=== PATIENT | male | born 1980 | race Caucasian/White ===

== ENCOUNTER 2018-02-19 19:43 | Emergency (ER) | payer MEDICAID ==
--- NOTE | 2018-02-19 21:05 | RADIOLOGY REPORT (SQ) ---
3 VIEWS OF THE LEFT ELBOW AND WRIST HISTORY: Twist arm while moving glass. COMPARISON: None. FINDINGS: No acute fracture is seen. The joint spaces are preserved. No elbow joint effusion is seen. There is mild soft tissue swelling of the left forearm. IMPRESSION: No acute fracture is seen.
[2018-02-19] MEDS ORDERED: HYDROCODONE/ACETAMINOPHEN 5-325 MG (6 TAB/ER DISP) PO PRN (21:31)
[2018-02-19] MEDS ORDERED: KETOROLAC TROMETHAMINE 60 MG/2 ML SDV IM ONE (21:31)
--- NOTE | 2018-02-19 21:35 | ER Document Report ---
ED General - General Chief Complaint: Elbow Injury Stated Complaint: LEFT ELBOW PAIN,LEFT LEG PAIN Time Seen by Provider: 02/19/18 21:18 Notes: Patient is a 37-year-old male with a past medical history of rheumatoid arthritis who presents with left elbow pain. States that he was trying to carry a glass top for a table into a house, lost his balance, attempted to catch the glass table to prevent it from breaking and heard a pop in his left elbow. States that since that time he has had a severe, constant, throbbing pain to the left elbow worsened by any attempt at fully flexing the elbow. Denies any history of similar injury in the past. He has not tried anything for improvement of the pain. He does also note that he sustained a superficial laceration over the distal left lower extremity where the glass table struck his leg but is clear to state that the glass table did not break and there was no shattering of the glass. His tetanus is up-to-date. He has not seen his primary care physician regarding today's concerns. TRAVEL OUTSIDE OF THE [place] IN LAST 30 DAYS: No - Related Data Allergies/Adverse Reactions: Penicillins Allergy (Verified 02/19/18 20:10) Past Medical History - General Information source: Patient - Social History Smoking Status: Never Smoker Frequency of alcohol use: None Drug Abuse: None Lives with: Spouse/Significant other Family History: Reviewed & Not Pertinent Review of Systems - Review of Systems Notes: Constitutional: Negative for fever. Eyes: Negative for visual changes. ENT: Negative for facial injury Cardiovascular: Negative for chest injury. Respiratory: Negative for shortness of breath. Gastrointestinal: Negative for abdominal injury. Genitourinary: Negative for genital injury Musculoskeletal: Positive for left elbow injury Skin: Positive for laceration/abrasions. Neurological: Negative for head injury. Physical Exam - Vital signs Vitals: Temp Pulse Resp BP Pulse Ox 98.5 F 84 17 128/77 H 98 02/19/18 20:09 02/19/18 20:09 02/19/18 20:09 02/19/18 20:09 02/19/18 20:09 Interpretation: Normal Notes: PHYSICAL EXAMINATION: GENERAL: Well-appearing, well-nourished and in no acute distress. HEAD: Atraumatic, normocephalic. EYES: Pupils equal round and reactive to light, extraocular movements intact, sclera anicteric, conjunctiva are normal. ENT: nares patent, oropharynx clear without exudates. Moist mucous membranes. NECK: Normal range of motion, supple without lymphadenopathy LUNGS: Breath sounds clear to auscultation bilaterally and equal. No wheezes rales or rhonchi. HEART: Regular rate and rhythm without murmurs ABDOMEN: Soft, nontender, normoactive bowel sounds. No guarding, no rebound. No masses appreciated. EXTREMITIES: Full flexion extension of the elbow passively, although patient is unable to fully extend the elbow. There is pain on palpation of the posterior medial aspect of the elbow, posterior to the medial epicondyle. No notable swelling or bruising. Extremity examination otherwise globally unremarkable. NEUROLOGICAL: RMU motor and sensory distribution is intact bilaterally including against resistance PSYCH: Normal mood, normal affect. SKIN: Warm, Dry, normal turgor, superficial 4 cm laceration over the distal tibial plateau of the left lower extremity Course - Re-evaluation Re-evalutation: 02/19/18 21:32 Patient presents with a 4 cm laceration along the distal left tibial plateau closed with Dermabond after irrigation and cleaning without any difficulty. The patient also is complaining of severe left elbow pain over the medial posterior aspect of the olecranon. The patient is able to fully flex and extend at the level of the elbow. RMU motor and sensory distribution is intact including against resistance on motor testing. There is no obvious swelling, bruising or deformity to the area. X-ray is unremarkable. Suspect likely ligamentous strain, advised patient that only an MRI can definitively diagnose a ligamentous tear and that he would require follow-up with orthopedic surgery should his pain not improve over the next several days. At this time will discharge with return precautions and follow-up recommendations. Verbal discharge instructions given a the bedside and opportunity for questions given. Medication warnings reviewed. Patient is in agreement with this plan and has verbalized understanding of return precautions and the need for primary care follow-up in the next 24-72 hours. - Vital Signs Vital signs: Temp Pulse Resp BP Pulse Ox 98.3 F 63 16 121/69 100 02/19/18 22:32 02/19/18 22:32 02/19/18 22:32 02/19/18 22:32 02/19/18 22:32 - Diagnostic Test Radiology reviewed: Image reviewed, Reports reviewed Radiology results interpreted by me: 12/31/18 21:33 Left elbow x-ray: No acute fracture or dislocation Left wrist x-ray: No acute fracture or dislocation Procedures - Laceration/Wound Repair Left Leg Wound length (cm): 4 Wound's Depth, Shape: Superficial Laceration pre-procedure: Sterile PPE donned Wound explored: Clean Irrigated w/ Saline (mLs): 500 Wound Debrided: Minimal Wound Repaired With: Dermabond Post-procedure wound care: Sterile dressing applied Post-procedure NV exam normal: Yes Complications: No Discharge - Discharge Clinical Impression: Laceration of left lower leg Qualifiers: Encounter type: initial encounter Qualified Code(s): S81.812A - Laceration without foreign body, left lower leg, initial encounter Injury of left elbow Qualifiers: Encounter type: initial encounter Qualified Code(s): S59.902A - Unspecified injury of left elbow, initial encounter Condition: Good Disposition: HOME, SELF-CARE Additional Instructions: Your x-ray does not show any acute fracture today. You likely have a ligamentous strain. Per your request, you have been placed on prednisone. Use Tylenol 650 mg every 6 hours and up to 1 tablet of [place] every 6 hours as needed for pain not controlled by Tylenol. Continue to apply ice to the area is much your able. Please follow-up with your primary care physician if you do not have improving your symptoms in the next 1-2 weeks as an MRI may be required to evaluate for any possible ligamentous tear or injury. Please return immediately if you develop weakness, numbness, spreading redness from the area, or any other symptoms that are concerning to you. The wound has been closed with glue. Please do not pick at the at the wound. Do not cover it with any kind of antibiotic ointment as this can cause the glue to loosen. Return immediately if you develop spreading redness around the wound, pus from the wound, worsening pain, or a fever of >100.4. Keep the area clean and dry. Prescriptions: Prednisone [Deltasone 20 mg Tablet] 2 tab PO DAILY 5 Days tablet
[2018-02-19 22:34] VITALS: BP 121/69
== END 2018-02-19 22:45 | disposition home or self-care (01) ==
LOC: ER 19:43
DX: S81.812A Laceration without foreign body, left lower leg, initial encounter (principal); W25.XXXA Contact with sharp glass, initial encounter; S59.902A Unspecified injury of left elbow, initial encounter; X50.0XXA Overexertion from strenuous movement or load, initial encounter; Y93.89 Activity, other specified; Z88.0 Allergy status to penicillin
CPT/HCPCS: 99283; 96372; 73080; 73110; 12002; J1885

== ENCOUNTER 2018-08-02 22:45 | Emergency (ER) | payer MEDICAID ==
[2018-08-02 23:52] VITALS: BP 130/78
== END 2018-08-03 00:30 | disposition left against medical advice (07) ==
LOC: ER 22:45
DX: Z53.21 Procedure and treatment not carried out due to patient leaving prior to being seen by health care provider (principal); K08.89 Other specified disorders of teeth and supporting structures

== ENCOUNTER 2019-01-17 19:52 | Emergency (ER) | payer MEDICAID ==
[2019-01-17] MEDS ORDERED: OXYCODONE-ACETAMINOPHEN 5-325 MG TABLET PO ONE (20:09)
--- NOTE | 2019-01-17 21:48 | RADIOLOGY REPORT (SQ) ---
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 COMPARISON: None. TECHNIQUE: Grayscale, color Doppler, and spectral Doppler ultrasound images of the right groin were obtained. FINDINGS: Images through the right groin demonstrate no mass, fluid collection, or hernia. The visualized portions of the testes are unremarkable. IMPRESSION: No acute findings are seen. Consider CT scan if there is high clinical concern.
[2019-01-17] MEDS ORDERED: ONDANSETRON HCL INJ/PF 4 MG/2 ML SDV IV ONE (22:09)
[2019-01-17] MEDS ORDERED: HYDROMORPHONE HCL INJ/PF 2 MG/ML AMPULE IV ONE (22:09)
[2019-01-17 22:48] LABS: ABSOLUTE BASOPHILS # (AUTO) 0.1 10^3/uL (0.0-0.2); MONOCYTES % (AUTO) 12.2 % (3-13); TOTAL CELLS COUNTED % (AUTO) 100 %
[2019-01-17] MEDS ORDERED: NICOTINE 21 MG/24 HR PATCH.TD24 TD ONE (22:49)
[2019-01-17 22:53] LABS: ABSOLUTE EOSINOPHILS # (AUTO) 0.2 10^3/uL (0.0-0.6); ABSOLUTE LYMPHOCYTES (AUTO) 3.5 10^3/uL (0.5-4.7); ABSOLUTE MONOCYTES (AUTO) 1.3 10^3/uL (0.1-1.4); ABSOLUTE NEUT (AUTO) 5.7 10^3/uL (1.7-8.2); BASOPHILS % (AUTO) 0.9 % (0-2); EOSINOPHILS % (AUTO) 2.2 % (0-6); HEMATOCRIT 41.9 % (37.9-51.0); HEMOGLOBIN 14.6 g/dL (13.5-17.0); LYMPHOCYTES % (AUTO) 32.5 % (13-45); MEAN CORPUSCULAR HEMOGLOBIN 34.3 pg (27.0-33.4); MEAN CORPUSCULAR HGB CONC 34.8 g/dL (32.0-36.0); MEAN CORPUSCULAR VOLUME 99 fl (80-97); PLATELET COUNT 213 10^3/uL (150-450); RED BLOOD COUNT 4.25 10^6/uL (4.35-5.55); SEGMENTED NEUTROPHILS % (AUTO) 52.2 % (42-78); WHITE BLOOD COUNT 10.9 10^3/uL (4.0-10.5)
[2019-01-17 23:05] LABS: APPEARANCE,URINE CLEAR; BILIRUBIN,URINE NEGATIVE (NEGATIVE); COLOR,URINE YELLOW; GLUCOSE, URINE NEGATIVE (NEGATIVE); KETONES,URINE NEGATIVE (NEGATIVE); LEUKOCYTE ESTERASE,URINE NEGATIVE (NEGATIVE); NITRITE,URINE NEGATIVE (NEGATIVE); PROTEIN,URINE NEGATIVE (NEGATIVE); URINE SPECIFIC GRAVITY 1.025
[2019-01-17 23:08] LABS: ALBUMIN 3.7 g/dL (3.5-5.0); ALKALINE PHOSPHATASE 85 U/L (38-126); ANION GAP 8 (5-19); ASPARTATE AMINO TRANSFERASE 22 U/L (17-59); BILIRUBIN,DIRECT 0.1 mg/dL (0.0-0.4); BILIRUBIN,TOTAL 0.6 mg/dL (0.2-1.3); BLOOD UREA NITROGEN 21 mg/dL (7-20); CARBON DIOXIDE 24 mmol/L (22-30); CHLORIDE 109 mmol/L (98-107); GLUCOSE 89 mg/dL (75-110); POTASSIUM 4.2 mmol/L (3.6-5.0); TOTAL PROTEIN 6.5 g/dL (6.3-8.2)
--- NOTE | 2019-01-17 23:17 | ER Document Report ---
Entered by PATRICIA SEYMOUR SCRIBE 01/17/[id number] Acting as scribe for:CRISTHIAN SCHWARTZ IV, MD ED General - General Chief Complaint: Abdominal Pain Stated Complaint: LOWER GROIN PAIN/POSSIBLE HERNIA COMPLICATION Time Seen by Provider: 01/17/19 20:09 Mode of Arrival: Ambulatory Information source: Patient Notes: This 38 year old male patient presents to the emergency department today with complaints of right groin pain. Patient is s/p right inguinal hernia repair with mesh and he states that he thinks that he may have "messed it up" at work yesterday. 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 Patient states that yesterday he was tasked with "digging large holes in the sand to install 16 foot x 6" x 6" pressure treated beams" and when he was moving one of these his foot slipped on the wet sand. Patient states that it is "one of those things where you think you may have heard something, but definitely felt something". Patient states his pain is exacerbated with movement. Patient states his pain is relieved if he applies pressure on the area. Pertinent PMHx/PSHx: Right laparoscopic inguinal hernia repair with mesh in early 2018 at [facility] - additional PMHx/PSHx not pertinent to this visit as recorded. TRAVEL OUTSIDE OF THE [place] IN LAST 30 DAYS: No - Related Data Allergies/Adverse Reactions: Penicillins Allergy (Verified 01/17/19 20:01) Home Medications: Aleve PRN Past Medical History - General Information source: Patient - Social History Smoking Status: Current Every Day Smoker Cigarette use (# per day): Yes Frequency of alcohol use: None Drug Abuse: None Occupation: construction job cost estimator Lives with: Spouse/Significant other Family History: Reviewed & Not Pertinent Patient has suicidal ideation: No Patient has homicidal ideation: No Past Surgical History: Reports: Hx Herniorrhaphy - Right inguinal hernia repaired with mesh in early 2018 at [facility] Review of Systems - Review of Systems Constitutional: No symptoms reported EENT: No symptoms reported Cardiovascular: No symptoms reported Respiratory: No symptoms reported Gastrointestinal: See HPI, Other - pain in right groin Genitourinary: No symptoms reported Male Genitourinary: No symptoms reported Musculoskeletal: No symptoms reported Skin: No symptoms reported Hematologic/Lymphatic: No symptoms reported Neurological/Psychological: No symptoms reported -: Yes All other systems reviewed and negative Physical Exam - Vital signs Vitals: Temp Pulse BP Pulse Ox 97.9 F 83 141/88 H 100 01/17/19 19:55 01/17/19 19:55 01/17/19 19:55 01/17/19 19:55 - Notes Notes: Physical Exam: General: Alert, appears uncomfortable. HEENT: Normocephalic. Atraumatic. PERRL. Extraocular movements intact. Oropharynx clear. Neck: Supple. Non-tender. Respiratory: No respiratory distress. Clear and equal breath sounds bilaterally. Cardiovascular: Regular rate and rhythm. Abdominal: Normal Inspection. Non-tender. No distension. Normal Bowel Sounds. Male genitourinary: Mild swelling in the right inguinal region with associated tenderness on palpation. No appreciable bowel sounds upon auscultation of this area. Small well healed laparoscopy incisions. Back: No gross abnormalities. Extremities: Moves all four extremities. Upper extremities: Normal inspection. Normal ROM. Lower extremities: Normal inspection. No edema. Normal ROM. Neurological: Normal cognition. AAOx4. Normal speech. Psychological: Normal affect. Normal Mood. Skin: Warm. Dry. Normal color. Course - Re-evaluation Re-evalutation: 01/18/19 01:20 Patient states his pain is improved somewhat after IV Dilaudid. Patient states some pain is still present. Results of ED MSE discussed with patient and patient's significant other. All questions were answered prior to discharge. Emergency signs and symptoms, reasons to return to the ED discussed with patient and patient's significant other; they expressed understanding of reasons to return as explained to them. - Vital Signs Vital signs: Temp Pulse Resp BP Pulse Ox 97.8 F 71 125/69 95 01/18/19 00:38 01/18/19 00:38 01/18/19 00:38 01/18/19 00:38 01/18/19 01:21 All vital signs reviewed by this MD. - Laboratory Result Diagrams: 01/17/19 22:25 01/17/19 22:25 Laboratory results interpreted by me: 01/17/19 01/17/19 01/17/19 22:25 22:25 22:25 WBC 10.9 H RBC 4.25 L MCV 99 H MCH 34.3 H Chloride 109 H BUN 21 H Lipase 490.6 H Urine Urobilinogen 2.0 H All laboratory results reviewed by this MD. Of note patient's lipase is elevated, he is not complaining of any epigastric pain and his pancreas on CT is unremarkable. - Diagnostic Test Radiology reviewed: Reports reviewed Discharge - Discharge Clinical Impression: Right inguinal pain Condition: Good Disposition: HOME, SELF-CARE Instructions: Inguinal Strain ([facility]), Oral Narcotic Medication ([facility]) Additional Instructions: Return to the Emergency Department without delay if any worse. Be certain to follow-up with your surgeon on 01/21/2019. HOME CARE INSTRUCTIONS & INFORMATION: Thank you for choosing us for your medical needs. We hope you're satisfied with the care you received. After you leave, you must properly care for your problem and, at the same time, observe its progress. Any condition can change. Some illnesses can change rapidly over hours or days. If your condition worsens, return to the Emergency Department or see your physician promptly. ABOUT YOUR X-RAYS AND EKG'S: If you had an EKG or X-rays taken, they have been read by the Emergency Physician. The X-rays and EKG's will also be read by a R adiologist or Speech Language Pathologist Prn within 24 hours. If discrepancies are noted, you will be notified by telephone. Please be certain the ED has a correct telephone number & address where you can be reached. Also, realize that some fractures or abnormalities do not show up on initial X-rays. If your symptoms continue, see your physician. ABOUT YOUR LABORATORY TEST: If you had laboratory tests, the results have been reviewed by the Emergency Physician. Some test results (for example cultures) may not be available for several days. You will be contacted if any test result shows you need additional treatment. Please be certain the ED has a correct telephone number and address where you can be reached. ABOUT YOUR MEDICATIONS: You will receive instructions on how to take your medicine on the prescription label you receive. Additional information may be provided by the Pharmacy. If you have questions afterwards, call the ED for clarification or further instructions. Some prescribed medications may cause drowsiness. Do not perform tasks such as driving a car or operating machinery without consulting your Pharmacist. If you feel you need a refill of pain medication, your condition will need re-evaluation. Please do not call for a refill of any medication. ABOUT YOUR SIGNATURE: Signature of this document acknowledges to followin. Understanding that you received emergency treatment and that you may be released before al medical problems are known or treated. Please be certain the ED has a correct phone number & address where you can be reached. 2. Acknowledgement that you will arrange for follow-up care as recommended. 3. Authorization for the Emergency Physician to provide information to your follow-up Physician in order to maximize your care. AT ANY TIME, IF YOUR SYMPTOMS CHANGE SIGNIFICANTLY OR WORSEN OR YOU DEVELOP NEW SYMPTOMS, RETURN TO THE EMERGENCY DEPARTMENT IMMEDIATELY FOR RE-EVALUATION. OUR GOAL IS TO PROVIDE EXCELLENT MEDICAL CARE! WE HOPE THAT WE HAVE MET YOUR EXPECTATIONS DURING YOUR EMERGENCY DEPARTMENT VISIT AND THAT YOU FEEL YOU HAVE RECEIVED EXCELLENT CARE! Prescriptions: Oxycodone HCl/Acetaminophen [Percocet 5-325 mg Tablet] 1 tab PO Q6H PRN #15 tablet PRN Reason: SEVERE PAIN Forms: Return to Work I personally performed the services described in the documentation, reviewed and edited the documentation which was dictated to the scribe in my presence, and it accurately records my words and actions.
[2019-01-18] MEDS ORDERED: ONDANSETRON HCL INJ/PF 4 MG/2 ML SDV IV ONE (00:20)
[2019-01-18 00:38] VITALS: BP 125/69
--- NOTE | 2019-01-18 01:05 | RADIOLOGY REPORT (SQ) ---
CLINICAL HISTORY: right sided inguinal pain, recent mesh placed COMPARISON: None. 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 FINDINGS: Lower lungs are clear. Abdomen: The liver is normal in appearance. There is no biliary dilatation. Gallbladder is normal in appearance. Stomach is distended with fluid. The pancreas and spleen are normal in appearance. The adrenal glands and kidneys are unremarkable. Abdominal aorta is normal in course and caliber without aneurysm. There is no free air. There is no retroperitoneal adenopathy. Pelvis: There is no bowel obstruction. Urinary bladder is unremarkable. There is no free fluid. Appendix is normal. There are minimal postoperative changes of the right inguinal region. Skeleton: There are no acute osseous findings. No suspicious bony lesions. IMPRESSION: No residual inguinal hernia or fluid collection.
[2019-01-18] MEDS ORDERED: HYDROCODONE/ACETAMINOPHEN 5-325 MG (6 TAB/ER DISP) PO PRN (01:18)
== END 2019-01-18 02:15 | disposition home or self-care (01) ==
LOC: ER 19:52
DX: R10.30 Lower abdominal pain, unspecified (principal); F17.210 Nicotine dependence, cigarettes, uncomplicated; R79.89 Other specified abnormal findings of blood chemistry; Z98.890 Other specified postprocedural states; Z88.0 Allergy status to penicillin
CPT/HCPCS: 96376; 99284; 96374; 96375; 36415; 83690; 85025; 80053; 81001; 76856; 93976; 74177; J1170; J2405 ×2; J3490

== ENCOUNTER 2019-01-25 17:03 | Emergency (ER) | payer MEDICAID ==
--- NOTE | 2019-01-25 17:18 | ER Document Report ---
ED Medical Screen (RME) - General Chief Complaint: Groin Pain Stated Complaint: POSSIBLE HERNIA PROBLEM Time Seen by Provider: 01/25/19 17:13 Mode of Arrival: Ambulatory Information source: Patient Notes: 38-year-old male presented to ED for complaint of severe right groin pain. He states he had a inguinal hernia repair 6 or 7 months ago in [place]. He states the day before he was picking up 6 [place] 6 is on the beach when he heard and felt a horrible pop. He states he has had horrible pain since then. He states he came in here that day at the next day on and they did a scan and a ultrasound and were not able to see that there was definitely a hernia. He states they told him to follow-up with the [facility]. He states he did call them they told him he cannot follow-up before 07 February. He states the pain is horrible and he cannot wait that long it is getting worse every day. Patient is alert oriented respirations regular nonlabored at this time. He is walking with a painful gait. Patient states he also has rheumatoid arthritis and is in the middle of a flare in his ankles and wrist which is making his pain extremely worse. I have greeted and performed a rapid initial assessment of this patient. A comprehensive ED assessment and evaluation of the patient, analysis of test results and completion of medical decision making process will be conducted by an additional ED providers. TRAVEL OUTSIDE OF THE [place] IN LAST 30 DAYS: No - Related Data Allergies/Adverse Reactions: Penicillins Allergy (Verified 01/17/19 20:01) Past Medical History Renal/ Medical History: Denies: Hx Peritoneal Dialysis Past Surgical History: Reports: Hx Herniorrhaphy - Right inguinal hernia repaired with mesh in early 2018 at [facility] Physical Exam - Vital signs Vitals: Temp Pulse Resp BP Pulse Ox 97.9 F 88 18 127/71 H 100 01/25/19 17:09 01/25/19 17:01/25/19 17:01/25/19 17:01/25/19 17:09 Course - Vital Signs Vital signs: Temp Pulse Resp BP Pulse Ox 97.9 F 88 18 127/71 H 100 01/25/19 17:09 01/25/19 17:09 01/25/19 17:09 01/25/19 17:09 01/25/19 17:09
[2019-01-25 17:52] LABS: ABSOLUTE EOSINOPHILS # (AUTO) 0.1 10^3/uL (0.0-0.6); ABSOLUTE LYMPHOCYTES (AUTO) 2.1 10^3/uL (0.5-4.7); ABSOLUTE MONOCYTES (AUTO) 1.3 10^3/uL (0.1-1.4); ABSOLUTE NEUT (AUTO) 6.4 10^3/uL (1.7-8.2); BASOPHILS % (AUTO) 0.3 % (0-2); HEMATOCRIT 45.3 % (37.9-51.0); HEMOGLOBIN 15.5 g/dL (13.5-17.0); LYMPHOCYTES % (AUTO) 20.8 % (13-45); MEAN CORPUSCULAR HEMOGLOBIN 33.9 pg (27.0-33.4); MEAN CORPUSCULAR HGB CONC 34.3 g/dL (32.0-36.0); MEAN CORPUSCULAR VOLUME 99 fl (80-97); MONOCYTES % (AUTO) 13.4 % (3-13); PLATELET COUNT 232 10^3/uL (150-450); RED BLOOD COUNT 4.58 10^6/uL (4.35-5.55); RED CELL DISTRIBUTION WIDTH 14.3 % (11.5-14.0); SEGMENTED NEUTROPHILS % (AUTO) 64.5 % (42-78); TOTAL CELLS COUNTED % (AUTO) 100 %; WHITE BLOOD COUNT 9.9 10^3/uL (4.0-10.5)
[2019-01-25] MEDS ORDERED: ACETAMINOPHEN 325 MG TABLET PO ONE (18:02)
[2019-01-25 18:03] LABS: APPEARANCE,URINE CLOUDY; BILIRUBIN,URINE NEGATIVE (NEGATIVE); COLOR,URINE YELLOW; GLUCOSE, URINE NEGATIVE (NEGATIVE); KETONES,URINE TRACE mg/dL (NEGATIVE); PROTEIN,URINE NEGATIVE (NEGATIVE); URINE SPECIFIC GRAVITY 1.014
[2019-01-25 18:07] LABS: ALBUMIN 4.2 g/dL (3.5-5.0); ALKALINE PHOSPHATASE 97 U/L (38-126); ANION GAP 11 (5-19); ASPARTATE AMINO TRANSFERASE 23 U/L (17-59); BILIRUBIN,DIRECT 0.1 mg/dL (0.0-0.4); BLOOD UREA NITROGEN 11 mg/dL (7-20); CALCIUM 9.5 mg/dL (8.4-10.2); CARBON DIOXIDE 26 mmol/L (22-30); CHLORIDE 105 mmol/L (98-107); GLUCOSE 89 mg/dL (75-110); POTASSIUM 4.3 mmol/L (3.6-5.0); TOTAL PROTEIN 7.5 g/dL (6.3-8.2)
--- NOTE | 2019-01-25 18:44 | RADIOLOGY REPORT (SQ) ---
EXAM DESCRIPTION: U/S NON OB PEL W/DOPPLER COMPLETED DATE/TIME: 01/25/2019 6:19 pm REASON FOR STUDY: possible re injury of right inguinal hernia COMPARISON: 01/17/2019 TECHNIQUE: Dynamic and static grayscale images acquired of the pelvis via transabdominal approach an d recorded on PACS. Additional selected color Doppler and spectral images recorded. LIMITATIONS: None. FINDINGS: Sonographic imaging in the right groin with the patient supine and standing and with and w ithout Valsalva maneuvers. No inguinal hernia is seen. IMPRESSION: Normal study. TECHNICAL DOCUMENTATION: JOB ID: [id number] [employer]- All Rights Reserved Rev-07/07 Reading location - IP/workstation name: [email or web address]
[2019-01-25] MEDS ORDERED: HYDROCODONE/ACETAMINOPHEN 5-325 MG (6 TAB/ER DISP) PO PRN (20:35)
[2019-01-25] MEDS ORDERED: OXYCODONE HCL IR 5 MG TABLET PO ONE (20:35)
--- NOTE | 2019-01-25 20:35 | ER Document Report ---
ED GI/ - General Chief Complaint: Groin Pain Stated Complaint: POSSIBLE HERNIA PROBLEM Time Seen by Provider: 01/25/19 17:13 Primary Care Provider: [facility] [Provider Group] - Follow up as needed Mode of Arrival: Ambulatory Notes: Patient is a 38-year-old male that comes to the emergency department for chief complaint of pain in the right groin area. He states he had surgery on the area at the beginning of 2018 at [facility], patient states that he was seen 4 days ago for pain in the right groin area, he states that [place] and he is worried that he has a recurrence of the hernia. He was seen here on 01/21/[address] and ultrasound of the area without acute abnormality. Patient was prescribed Percocet, he states that he has been taking this twice a day and it has helped him get through, he states he ran out yesterday and he does not have an appointment follow-up with the local surgical clinic here for about 2 weeks, he states that he needs something for pain. He also states that he thinks he is having I flareup of his rheumatoid arthritis and he wonders if he can have steroids. Pain is in the groin region on the right, worse with movement, he denies abnormal bowel movements, fever/chills, nausea/vomiting, or any other locations of pain. He denies reinjury. He denies any current medications other than Remicade infusions. TRAVEL OUTSIDE OF THE [place] IN LAST 30 DAYS: No - Related Data Allergies/Adverse Reactions: Penicillins Allergy (Verified 01/25/19 17:17) Past Medical History - General Information source: Patient - Social History Smoking Status: Never Smoker Frequency of alcohol use: None Drug Abuse: None Lives with: Family Family History: Reviewed & Not Pertinent Patient has suicidal ideation: No Patient has homicidal ideation: No Renal/ Medical History: Denies: Hx Peritoneal Dialysis Musculoskeletal Medical History: Reports Hx Arthritis - ra Past Surgical History: Reports: Hx Abdominal Surgery - hernia repair, Hx Herniorrhaphy - Right inguinal hernia repaired with mesh in early 2018 at [facility], Hx Orthopedic Surgery - rt hand/left thumb/rt elbow Review of Systems - Review of Systems Constitutional: No symptoms reported EENT: No symptoms reported Cardiovascular: No symptoms reported Respiratory: No symptoms reported Gastrointestinal: See HPI Genitourinary: See HPI Male Genitourinary: No symptoms reported Musculoskeletal: No symptoms reported Skin: No symptoms reported Hematologic/Lymphatic: No symptoms reported Neurological/Psychological: No symptoms reported Physical Exam - Vital signs Vitals: Temp Pulse Resp BP Pulse Ox 97.9 F 88 18 127/71 H 100 01/25/19 17:09 01/25/19 17:09 01/25/19 17:09 01/25/19 17:09 01/25/19 17:09 - Notes Notes: GENERAL: Alert, interacts well. No acute distress. HEAD: Normocephalic, atraumatic. EYES: Pupils equal, round, and reactive to light. Extraocular movements intact. ENT: Oral mucosa moist, tongue midline. Oropharynx unremarkable. Airway patent. LUNGS: Clear to auscultation bilaterally, no wheezes, rales, or rhonchi. No respiratory distress. HEART: Regular rate and rhythm. No murmur ABDOMEN: Soft, non-tender. Non-distended. Bowel sounds present in all 4 quadrants. GENITOURINARY: No tenderness over the genitals. Tenderness mildly over the ri ght inguinal area with no noted lymphadenopathy, no induration, fluctuance, or erythema. Old small surgical scar. EXTREMITIES: Moves all 4 extremities spontaneously. No edema, normal radial and dorsalis pedis pulses bilaterally. No cyanosis. BACK: no cervical, thoracic, lumbar midline tenderness. No saddle anesthesia, normal distal neurovascular exam. Moves all extremities in full range of motion. NEUROLOGICAL: Alert and oriented x3. Normal speech. Cranial nerves II through XII grossly intact. PSYCH: Normal affect, normal mood. SKIN: Warm, dry, normal turgor. No rashes or lesions noted. Course - Re-evaluation Re-evalutation: Patient has some mild tenderness over the generalized right groin area, old surgical scar, no noted erythema, swelling, induration, fluctuance, patient has pain with range of motion of the right thigh/hip. However patient does not appear to be in any distress, ambulates without difficulty, normal distal neurovascular exam, no fever, unremarkable laboratory work-up, unremarkable ultrasound with no evidence of returned hernia. I discussed with patient. Patient has close follow-up with the surgical clinic for additional evaluation, we will attempt to treat musculoskeletal portion and complains about general body aches from suspected rheumatoid arthritis flare per patient with muscle relaxants and steroids, discussed follow-up and return precautions. Patient states appreciation and agreement. - Vital Signs Vital signs: Temp Pulse Resp BP Pulse Ox 98.5 F 82 16 112/62 98 01/25/19 20:58 01/25/19 20:58 01/25/19 20:58 01/25/19 20:58 01/25/19 20:58 - Laboratory Result Diagrams: 01/25/19 17:30 01/25/19 17:30 Laboratory results interpreted by me: 01/25/19 01/25/19 17:30 17:30 MCV 99 H MCH 33.9 H RDW 14.3 H [place] % (Auto) 13.4 H Urine Ketones TRACE H Urine Urobilinogen 4.0 H Discharge - Discharge Clinical Impression: Right inguinal pain Condition: Stable Disposition: HOME, SELF-CARE Instructions: Oral Narcotic Medication ([facility]) Additional Instructions: The ultrasound does not show any concerning findings, your laboratory work-up is normal, there does not appear to be an infection over the area. The exact cause of your pain is uncertain at this time. I recommend heat to the area, muscle relaxer as prescribed at night, 600 mg of ibuprofen together with 1000 mg of Tylenol every 6 hours, and follow-up with your appointment for additional management. Consider following up with the pain clinic referral. Return for any concerning or worsening symptoms including swelling or redness of the area, fever, vomiting, or any other concerning or worsening symptoms. Prescriptions: Prednisone [Deltasone 10 mg Tablet] 10 mg PO ASDIR PRN #21 tablet PRN Reason: Cyclobenzaprine HCl [Flexeril 5 mg Tablet] 1 - 2 tab PO TID PRN #20 tablet PRN Reason: Referrals: [facility] [Provider Group] - Follow up as needed
[2019-01-25 21:00] VITALS: BP 112/62
== END 2019-01-25 20:59 | disposition home or self-care (01) ==
LOC: ER 17:03
DX: R10.31 Right lower quadrant pain (principal); M79.651 Pain in right thigh; Z88.0 Allergy status to penicillin
CPT/HCPCS: 99284; 36415; 85025; 80053; 81001; 76856; 93976; J3490 ×2

== ENCOUNTER 2019-02-26 21:08 | Emergency (ER) | payer MEDICAID ==
[2019-02-26] MEDS ORDERED: IBUPROFEN 800 MG TABLET PO ONE (21:42)
--- NOTE | 2019-02-26 21:44 | ER Document Report ---
ED Medical Screen (RME) - General Chief Complaint: Back Pain Stated Complaint: BACK AND SHOULDER PAIN/RIGHT HAND ISSUE Time Seen by Provider: 02/26/19 21:37 Mode of Arrival: Wheelchair Information source: Patient Notes: 38-year-old male presents the emergency department with complaints of bilateral shoulder pain back pain. 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 He reports he is unable to lift his arms now due to the pain. Has history of RA. Has not taken anything for the pain prior to arrival. I have greeted and performed a rapid initial assessment of this patient. A comprehensive ED assessment and evaluation of the patient, analysis of test results and completion of the medical decision making process will be conducted by additional ED providers. TRAVEL OUTSIDE OF THE [place] IN LAST 30 DAYS: No - Related Data Allergies/Adverse Reactions: Penicillins Allergy (Verified 01/25/19 17:17) Past Medical History Renal/ Medical History: Denies: Hx Peritoneal Dialysis Musculoskeltal Medical History: Reports Hx Arthritis - ra Past Surgical History: Reports: Hx Abdominal Surgery - hernia repair, Hx Herniorrhaphy - Right inguinal hernia repaired with mesh in early 2018 at [facility], Hx Orthopedic Surgery - rt hand/left thumb/rt elbow Physical Exam - Vital signs Vitals: Temp Pulse Resp BP Pulse Ox 98.7 F 96 20 117/78 99 02/26/19 21:18 02/26/19 21:18 02/26/19 21:18 02/26/19 21:18 02/26/19 21:18 Course - Vital Signs Vital signs: Temp Pulse Resp BP Pulse Ox 98.7 F 96 20 117/78 99 02/26/19 21:18 02/26/19 21:18 02/26/19 21:18 02/26/19 21:18 02/26/19 21:18
[2019-02-26 22:10] LABS: ABSOLUTE BASOPHILS # (AUTO) 0.1 10^3/uL (0.0-0.2); ABSOLUTE EOSINOPHILS # (AUTO) 0.2 10^3/uL (0.0-0.6); ABSOLUTE LYMPHOCYTES (AUTO) 3.1 10^3/uL (0.5-4.7); ABSOLUTE MONOCYTES (AUTO) 1.5 10^3/uL (0.1-1.4); ABSOLUTE NEUT (AUTO) 7.2 10^3/uL (1.7-8.2); BASOPHILS % (AUTO) 0.4 % (0-2); EOSINOPHILS % (AUTO) 1.6 % (0-6); HEMATOCRIT 41.8 % (37.9-51.0); HEMOGLOBIN 14.6 g/dL (13.5-17.0); LYMPHOCYTES % (AUTO) 25.7 % (13-45); MEAN CORPUSCULAR HEMOGLOBIN 33.8 pg (27.0-33.4); MEAN CORPUSCULAR HGB CONC 34.9 g/dL (32.0-36.0); MEAN CORPUSCULAR VOLUME 97 fl (80-97); MONOCYTES % (AUTO) 12.7 % (3-13); PLATELET COUNT 226 10^3/uL (150-450); RED BLOOD COUNT 4.31 10^6/uL (4.35-5.55); RED CELL DISTRIBUTION WIDTH 13.9 % (11.5-14.0); SEGMENTED NEUTROPHILS % (AUTO) 59.6 % (42-78); TOTAL CELLS COUNTED % (AUTO) 100 %; WHITE BLOOD COUNT 12.1 10^3/uL (4.0-10.5)
[2019-02-26 22:21] LABS: APPEARANCE,URINE SLIGHTLY-CLOUDY; BILIRUBIN,URINE NEGATIVE (NEGATIVE); COLOR,URINE YELLOW; GLUCOSE, URINE NEGATIVE (NEGATIVE); KETONES,URINE NEGATIVE (NEGATIVE); LEUKOCYTE ESTERASE,URINE TRACE (NEGATIVE); NITRITE,URINE NEGATIVE (NEGATIVE); PROTEIN,URINE NEGATIVE (NEGATIVE)
[2019-02-26 22:29] LABS: ALBUMIN 4.1 g/dL (3.5-5.0); ALKALINE PHOSPHATASE 88 U/L (38-126); ANION GAP 11 (5-19); ASPARTATE AMINO TRANSFERASE 29 U/L (17-59); BILIRUBIN,DIRECT 0.2 mg/dL (0.0-0.4); BILIRUBIN,TOTAL 0.8 mg/dL (0.2-1.3); BLOOD UREA NITROGEN 12 mg/dL (7-20); CALCIUM 9.5 mg/dL (8.4-10.2); CARBON DIOXIDE 25 mmol/L (22-30); CHLORIDE 104 mmol/L (98-107); CREATINE KINASE 166 U/L (55-170); GLUCOSE 92 mg/dL (75-110); POTASSIUM 3.6 mmol/L (3.6-5.0); TOTAL PROTEIN 7.2 g/dL (6.3-8.2)
--- NOTE | 2019-02-26 22:35 | RADIOLOGY REPORT (SQ) ---
EXAM DESCRIPTION: XR SHOULDER 2 OR MORE VIEWS BILATERAL COMPLETED DATE/TME: 02/26/2019 21:42 CLINICAL HISTORY: 38 years, Male, bilateral shoulder pain COMPARISON: None. NUMBER OF VIEWS: 3 views of each shoulder TECHNIQUE: 3 views of each shoulder, including internal and external views. LIMITATIONS: None. FINDINGS: Left shoulder: Negative for fracture or dislocation. No changes on internal to external rotation. Minor degenerative changes of the AC joint. Right shoulder: Negative for fracture or dislocation. Well-defined calcifications may reflect calcific tendinopathy in the region of the rotator cuff distally. Mild degenerative changes of the AC joint. IMPRESSION: Mild degenerative changes of the AC joint bilaterally. Possible calcific tendinopathy on the right. copyright 2010 [employer] All Rights Reserved
[2019-02-26] MEDS ORDERED: NORMAL SALINE 1000 ML 1,000 ML IV ONE (22:59)
[2019-02-26] MEDS ORDERED: METHYLPREDNISOLONE INJ 125 MG/2 ML SDV IV ONE (22:59)
[2019-02-26] MEDS ORDERED: DIAZEPAM INJ 10 MG/2 ML DISP.SYRIN IV ONE (22:59)
--- NOTE | 2019-02-26 23:14 | ER Document Report ---
ED General - General Chief Complaint: Shoulder Pain Stated Complaint: BACK AND SHOULDER PAIN/RIGHT HAND ISSUE Time Seen by Provider: 02/26/19 21:37 Primary Care Provider: BROOKLYN WINTER MD [ACTIVE STAFF] - Follow up as needed Mode of Arrival: Wheelchair Notes: Patient is a 38-year-old male that comes to the emergency department for chief complaint of left upper back pain and left shoulder pain. 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 He states he feels like he pulled something but now it tightened up and is extremely painful. He states he can barely move his left shoulder or arm as a result. He denies numbness, he denies head injury. Patient denies chest pain, headache, abdominal pain. He reports a history of rheumatoid arthritis, also states that his right hand is starting to get tightness and swelling, he states he was hoping he could be prescribed steroids. He is on Remicade infusions normally, currently not on anything transitioning to a new infusion. Only other medical history is hernia repair. TRAVEL OUTSIDE OF THE [place] IN LAST 30 DAYS: No - Related Data Allergies/Adverse Reactions: Penicillins Allergy (Verified 01/25/19 17:17) Past Medical History - General Information source: Patient - Social History Smoking Status: Never Smoker Drug Abuse: None Lives with: Family Family History: Reviewed & Not Pertinent Patient has suicidal ideation: No Patient has homicidal ideation: No Renal/ Medical History: Denies: Hx Peritoneal Dialysis Musculoskeletal Medical History: Reports Hx Arthritis - ra Past Surgical History: Reports: Hx Abdominal Surgery - hernia repair, Hx Herniorrhaphy - Right inguinal hernia repaired with mesh in early 2018 at [facility], Hx Orthopedic Surgery - rt hand/left thumb/rt elbow - Immunizations Hx Diphtheria, Pertussis, Tetanus Vaccination: Yes Review of Systems - Review of Systems Constitutional: No symptoms reported EENT: No symptoms reported Cardiovascular: No symptoms reported Respiratory: No symptoms reported Gastrointestinal: No symptoms reported Genitourinary: No symptoms reported Male Genitourinary: No symptoms reported Musculoskeletal: See HPI Skin: No symptoms reported Hematologic/Lymphatic: No symptoms reported Neurological/Psychological: No symptoms reported Physical Exam - Vital signs Vitals: Temp Pulse Resp BP Pulse Ox 98.7 F 96 20 117/78 99 02/26/19 21:18 02/26/19 21:18 02/26/19 21:18 02/26/19 21:18 02/26/19 21:18 - Notes Notes: GENERAL: Alert, interacts well. Grimaces with movement but otherwise well- appearing HEAD: Normocephalic, atraumatic. EYES: Pupils equal, round, and reactive to light. Extraocular movements intact. ENT: Oral mucosa moist, tongue midline. Oropharynx unremarkable. Airway patent. NECK: Full range of motion. Supple. Trachea midline. LUNGS: Clear to auscultation bilaterally, no wheezes, rales, or rhonchi. No respiratory distress. No signs of trauma, no tenderness with palpation over the chest HEART: Regular rate and rhythm. No murmur ABDOMEN: Soft, non-tender. Non-distended. EXTREMITIES: Moves all 4 extremities spontaneously. No edema, normal radial and dorsalis pedis pulses bilaterally. No cyanosis. BACK: Tense bunched up muscle fibers in the left upper shoulder underneath the scapula and extending up and around the scapula towards the shoulder. Pain with range of motion of the shoulder, difficulty lifting arm up towards the head. Normal receptionist scheduler, normal distal neurovascular exam of the left arm. No signs of trauma. No cervical, thoracic, lumbar midline tenderness. No saddle anesthesia, normal distal neurovascular exam. Lower extremities unremarkable. NEUROLOGICAL: Alert and oriented x3. Normal speech. Cranial nerves II through XII grossly intact. PSYCH: Normal affect, normal mood. SKIN: Warm, dry, normal turgor. No rashes or lesions noted. Course - Re-evaluation Re-evalutation: Patient grimaces with any movement, has obvious muscle spasm in the left upper back/trapezius muscle and adjacent to the scapula. No neurological deficits. No signs of trauma. X-ray unremarkable in regards to acute findings, shows degenerative changes at the AC joint and calcific tendinitis of the right shoulder. Right shoulder unremarkable on exam. I did review labs from triage including CBC which shows mild leukocytosis but nonspecific given exam, chemistry, urinalysis which strangely shows some white blood cells and leukocyte esterase, patient has no abdominal, mid to lower flank, or urinary/genital symptoms. Culture placed. Patient given IV fluids, Valium, Solu-Medrol. On reevaluation he is much improved, moving better. He requests a steroid taper, he did request details and given to me, he is a lot of experience with this, currently on no therapy for rheumatoid arthritis. He was provided with a steroid taper, muscle relaxer, work release, discussed follow-up and return precautions. Patient states appreciation and agreement. Patient also requests a sling for comfort, he was provided with this. - Vital Signs Vital signs: Temp Pulse Resp BP Pulse Ox 98.1 F 71 18 112/54 L 95 02/27/19 00:25 02/27/19 00:25 02/27/19 00:25 02/27/19 00:25 02/27/19 00:25 - Laboratory Result Diagrams: 02/26/19 21:59 02/26/19 21:59 Laboratory results interpreted by me: 02/26/19 02/26/19 21:59 21:59 WBC 12.1 H RBC 4.31 L MCH 33.8 H Absolute Monos (auto) 1.5 H Urine Urobilinogen 4.0 H Ur Leukocyte Esterase TRACE H Procedures - Immobilization Left arm Pre-Proc Neuro Vasc Exam: Normal Immobilizer type: Sling Performed by: RN Post-Proc Neuro Vasc Exam: Normal Alignment checked and good: Yes Discharge - Discharge Clinical Impression: Upper back pain on left side, Muscle spasm Left shoulder pain Qualifiers: Chronicity: acute Qualified Code(s): M25.512 - Pain in left shoulder Rheumatoid arthritis Qualifiers: Rheumatoid arthritis location: hand Rheumatoid factor presence: with rheumatoid factor Laterality: right Qualified Code(s): M05.741 - Rheumatoid arthritis with rheumatoid factor of right hand without organ or systems involvement Condition: Stable Disposition: HOME, SELF-CARE Additional Instructions: You have some arthritis in both of the AC joints (the joints that connect your collarbone to your shoulder). You also have possible calcific tendinopathy (calcium development in the tendon) of your right shoulder. However this appears not related, your evaluation is most consistent with a muscle spasm and possible rheumatoid flare of the right hand. You have been placed on prednisone taper because of rheumatoid arthritis, please follow-up with rheumatology for additional management, see primary care referral as well. I recommend heat, gentle stretches, and the provided muscle relaxer especially at night. Symptoms should gradually improve and resolve. Return if you worsen including severe worsening pain, swelling, fever, difficulty breathing, or any other concerning or worsening symptoms. Prescriptions: Prednisone [Deltasone 20 mg Tablet] 3 tab PO DAILY 14 Days #29 tablet Diazepam [Valium 5 mg Tablet] 1 - 2 tab PO TID PRN #12 tablet PRN Reason: Forms: Return to Work Referrals: BROOKLYN WINTER MD [ACTIVE STAFF] - Follow up as needed
[2019-02-27 00:27] VITALS: BP 112/54
== END 2019-02-27 00:39 | disposition home or self-care (01) ==
LOC: ER 21:08
DX: M62.830 Muscle spasm of back (principal); M54.9 Dorsalgia, unspecified; M25.512 Pain in left shoulder; X50.0XXA Overexertion from strenuous movement or load, initial encounter; Y93.89 Activity, other specified; Y99.0 Civilian activity done for income or pay; M05.741 Rheumatoid arthritis with rheumatoid factor of right hand without organ or systems involvement; D72.829 Elevated white blood cell count, unspecified; Z88.0 Allergy status to penicillin
CPT/HCPCS: 99283; 96361; 96374; 96375; 36415; 87086; 82550; 85025; 80053; 81001; 73030; J3490; J3360; J2930; J7030

== ENCOUNTER 2020-03-13 18:58 | Emergency (ER) | payer MEDICAID ==
--- NOTE | 2020-03-13 19:28 | ER Document Report ---
ED Medical Screen (RME) - General Chief Complaint: Groin Pain Stated Complaint: ABDOMINAL PAIN Time Seen by Provider: 03/13/20 19:12 Notes: Patient presents with right groin pain that started yesterday. Patient felt a pop and then had a bulge into the right groin. Patient reports nausea vomiting yesterday. Patient reports flareup of his RA with right knee and ankle pain and swelling. I have greeted and performed a rapid initial assessment of this patient. A comprehensive ED assessment and evaluation of the patient, analysis of test results and completion of the medical decision making process will be conducted by additional ED providers. TRAVEL OUTSIDE OF THE [place] IN LAST 30 DAYS: No - Related Data Allergies/Adverse Reactions: No Known Allergies Allergy (Verified 03/13/20 19:17) Past Medical History Renal/ Medical History: Denies: Hx Peritoneal Dialysis Musculoskeltal Medical History: Reports Hx Arthritis - ra Past Surgical History: Reports: Hx Abdominal Surgery - hernia repair, Hx Herniorrhaphy - Right inguinal hernia repaired with mesh in early 2018 at [facility], Hx Orthopedic Surgery - rt hand/left thumb/rt elbow - Immunizations Hx Diphtheria, Pertussis, Tetanus Vaccination: Yes Physical Exam - Vital signs Vitals: Temp Pulse Resp BP Pulse Ox 98.6 F 88 16 124/71 99 03/13/20 19:08 03/13/20 19:08 03/13/20 19:08 03/13/20 19:08 03/13/20 19:08 - General Notes: Patient points to right groin area has been tender, patient also complains of right lower extremity pain, exam limited as patient is in pants in triage. Course - Vital Signs Vital signs: Temp Pulse Resp BP Pulse Ox 98.6 F 88 16 124/71 99 03/13/20 19:08 03/13/20 19:08 03/13/20 19:08 03/13/20 19:08 03/13/20 19:08
--- NOTE | 2020-03-13 21:03 | RADIOLOGY REPORT (SQ) ---
EXAM DESCRIPTION: US PELVIS COMPLETED DATE/TME: 03/13/2020 20:19 CLINICAL HISTORY: 39 years, Male, right groin pain COMPARISON: None. TECHNIQUE: Sonographic evaluation of the right groin was performed. Strauss scale imaging and Doppler imaging were performed. LIMITATIONS: None. FINDINGS: There is a masslike area of heterogeneous echogenicity with reported movement on real-time observation per the access control specialist, possibly representing a hernia. Correlation with physical examination is recommended. CT could be performed for additional evaluation as clinically directed. No other significant finding. IMPRESSION: Masslike area of heterogeneous echogenicity with reported movement on real-time observation per the access control specialist, possibly representing a hernia. Correlation with physical examination is recommended. CT could be performed for additional evaluation as clinically directed. copyright 2011 [employer]- All Rights Reserved
--- NOTE | 2020-03-13 21:16 | ER Document Report ---
ED General - General Chief Complaint: Groin Pain Stated Complaint: ABDOMINAL PAIN Time Seen by Provider: 03/13/20 19:12 Primary Care Provider: [facility] [Provider Group] - Follow up as needed MARY GONSALEZ MD [ACTIVE STAFF] - Follow up as needed Mode of Arrival: Ambulatory Information source: Patient Notes: 39-year-old male presented to ED for complaint of right groin pain that started yesterday. 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 He states he has had a inguinal hernia repair on this side and now he has a bulge at this area. He states he also was having a flareup of his rheumatoid arthritis in his right knee and ankle with pain and swelling. There is minimal swelling to the right knee and ankle area. He states he was on Remicade was having very few flareups of his RA but now that he is been taken off the Remicade because the insurance would not pay for it he has more frequent flareups. He states frequently they will give him an IV steroid and then send him home on a tapered dose of prednisone. 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 Constitutional: Negative for fever. HENT: Negative for sore throat. Eyes: Negative for visual changes. Cardiovascular: Negative for chest pain. Respiratory: Negative for shortness of breath. Gastrointestinal: Patient states he does have a mild bulge to the right groin. He states he did have a inguinal hernia repair and cautery general with mesh about 2019. Genitourinary: Negative for dysuria. Musculoskeletal: More pain and swelling to the right knee and ankle he states this is a flareup from his rheumatoid arthritis. He states he does get steroids sometimes as well as anti-inflammatories for this pain. Skin: Negative for rash. Neurological: Negative for headaches, weakness or numbness. 10 point ROS negative except as marked above and in HPI. VITAL SIGNS: Within normal limits. GENERAL: No acute distress, non-toxic appearance. HEAD: Normal with no signs of head trauma. EYES: PERRLA, EOMI, conjunctiva normal, no discharge. EARS: Hearing grossly intact. NOSE: Normal. THROAT: Oropharynx is normal. NECK: Normal range of motion, no tenderness, supple, no lymphadenopathy, No adenopathy, no JVD. CHEST: Clear breath sounds bilaterally. No wheezes, rales, or rhonchi. CARDIAC: Regular rate and rhythm. S1 and S2, without murmurs, gallops, or rubs. VASCULAR: No Edema. Peripheral pulses normal and equal in all extremities. ABDOMEN: Normal and soft with no tenderness, no masses or pulsatile masses. Very minimal fullness to the right groin area no firm area no obvious masses GASTROINTESTINAL: Bowel sounds normal GENITOURINARY: Normal, No tenderness LYMPATHTIC: No lymphadenopathy noted. MUSCULOSKELETAL: Good range of motion of all major joints. Extremities without clubbing, cyanosis or edema. Mild swelling and tenderness to the right knee and ankle NEUROLOGICAL: Alert and oriented x 3. No focal sensory or strength deficits. Speech normal. Follows commands appropriately. PSYCHIATRIC: Normal Affect, judgement and mood. SKIN: Normal appearance with no rashes or lesions. TRAVEL OUTSIDE OF THE [place] IN LAST 30 DAYS: No - HPI Onset: Yesterday Onset/Duration: Sudden Quality of pain: Achy - Right knee and ankle, Sharp - Right groin Severity: Moderate Pain Level: 3 Associated symptoms: Other - Fullness tenderness to the right groin mild swelling to the right knee and ankle Exacerbated by: Movement, Walking, Coughing Relieved by: Denies Similar symptoms previously: Yes Recently seen / treated by doctor: Yes - Related Data Allergies/Adverse Reactions: No Known Allergies Allergy (Verified 03/13/20 19:17) Past Medical History - General Information source: Patient - Social History Smoking Status: Current Every Day Smoker Cigarette use (# per day): Yes - 1/2-1 pack per day Smoking Education Provided: Yes - 3 min Frequency of alcohol use: Rare Drug Abuse: None Occupation: Construction Lives with: Family Family History: Reviewed & Not Pertinent Renal/ Medical History: Denies: Hx Peritoneal Dialysis Musculoskeletal Medical History: Reports Hx Arthritis - RA Past Surgical History: Reports: Hx Abdominal Surgery - inguinal hernia repair 2019, Hx Herniorrhaphy - Right inguinal hernia repaired with mesh in early 2018 at [facility], Hx Orthopedic Surgery - rt hand/left thumb/rt elbow - Immunizations Hx Diphtheria, Pertussis, Tetanus Vaccination: Yes Physical Exam - Vital signs Vitals: Temp Pulse Resp BP Pulse Ox 98.6 F 88 16 124/71 99 03/13/20 19:08 03/13/20 19:08 03/13/20 19:08 03/13/20 19:08 03/13/20 19:08 Course - Re-evaluation Re-evalutation: 03/14/20 03:42 Ultrasound labs discussed with patient. Patient was discharged home after the event naproxen and Decadron for his flare of rheumatoid arthritis in his possible return of right inguinal hernia. He did request narcotic pain medicines. He was given a [place] dispense pack and instructed to follow-up with [facility]. His hernia was not incarcerated there was no bulging no darkness no blockage. He was discharged home. - Vital Signs Vital signs: Temp Pulse Resp BP Pulse Ox 97.8 F 72 14 112/73 98 03/13/20 22:22 03/13/20 22:22 03/13/20 22:22 03/13/20 22:22 03/13/20 22:22 - Laboratory Results Critical Laboratory Results Reviewed: No Critical Results - Radiology Results Critical Radiology Results Reviewed: No Critical Results Discharge - Discharge Clinical Impression: Recurrent right inguinal hernia, Rheumatoid arthritis flare Condition: Stable Disposition: HOME, SELF-CARE Additional Instructions: Arthritis Your symptoms are due to arthritis. Arthritis is an inflammation of the joints. There are many types -- osteoarthritis (due to "wear and tear"), auto- immmune arthritis (such as rheumatoid, lupus, Carlos's, and others), and crystal-induced arthritis (such as gout and pseudogout). The physician's examination, combined with laboratory tests, will determine the cause of your arthritis. All types of arthritis are treated with antiinflammatory medications. Other medication may be required for special types of arthritis, or if your problem does not respond to the antiinflammatory medicine. Local warmth may be helpful. Move the involved joints through the full range of motion daily. Mild exercise is usually still possible for most persons with arthritis (ask your physician). Swimming provides good exercise without damaging the joints. Contact the physician if you are worsening in any way. Hernia You have a hernia. A hernia forms at a weak spot in the abdominal wall. Bowel slips out of the abdominal cavity into the weak spot. Hernias tend to occur in the groin (especially in males), the fold of the thigh, the naval, or at a surgical scar. Surgical repair of the defect is usually necessary. The problem tends to get worse. It's important that you follow up as recommended. For now, you should avoid straining, heavy lifting, and vigorous exercise. Complications occur if the hernia becomes tightly stuck. You should come back immediately if the area becomes increasingly painful, swollen, or discolored, or if you develop abdominal pain and vomiting. STEROID MEDICATION: You have been given a medicine of the cortisone/steroid class. This medication is used to control inflammation or allergy. It is usually only given for a short period of time, until the acute process subsides. There are usually no side effects from short-term use of cortisone-like medications. Some persons feel an increased sense of well-being and are not sleepy at bedtime. Long-term use of cortisone medications is best avoided, unless required for a severe condition. If your condition does not remit, or relapses after the course of corticosteroid medication, you should consult your physician. Anti-Inflammatory Medication You have received a prescription for an antiinflammatory agent. This is an excellent, safe drug for pain control. In addition, it has potent antiinflammatory effects which are beneficial, especially in the treatment of injuries, arthritis, or tendonitis. It's best to take this medicine with food. Persons with ulcer disease or allergy to aspirin should notify their physician of this before taking this drug. Take the medication exactly as prescribed. Don't take additional doses unless instructed to do so by your doctor. If you develop wheezing, shortness of breath, hives, faintness, stomach pain, vomiting, or dark black stools, return for re-evaluation at once. FOLLOW-UP CARE: If you have been referred to a physician for follow-up care, call the physicians office for an appointment as you were instructed or within the next two days. If you experience worsening or a significant change in your symptoms, notify the physician immediately or return to the Emergency Department at any time for re-evaluation. Prescriptions: Prednisone [Deltasone 10 mg Tablet] 10 mg PO ASDIR PRN #21 tablet PRN Reason: Naproxen 500 mg PO BIDP PRN #14 tablet PRN Reason: Forms: Special Work Note, Smoking Cessation Education, Return to Work Referrals: [facility] [Provider Group] - Follow up as needed MARY GONSALEZ MD [ACTIVE STAFF] - Follow up as needed
[2020-03-13] MEDS ORDERED: DEXAMETHASONE SOD PHOS INJ 10 MG/1 ML VIAL IM ONE (21:20)
[2020-03-13] MEDS ORDERED: NAPROXEN 250 MG TABLET PO ONE (21:20)
[2020-03-13] MEDS ORDERED: HYDROCODONE/ACETAMINOPHEN 5-325 MG (6 TAB/ER DISP) PO PRN (22:10)
[2020-03-13 22:23] VITALS: BP 112/73
== END 2020-03-13 22:24 | disposition home or self-care (01) ==
LOC: ER 18:58
DX: K40.91 Unilateral inguinal hernia, without obstruction or gangrene, recurrent (principal); M06.9 Rheumatoid arthritis, unspecified; F17.210 Nicotine dependence, cigarettes, uncomplicated
CPT/HCPCS: 99406; 99285; 96372; 76856; J3490; J1100